=== PATIENT | male | born 1970 | race Caucasian/White ===

== ENCOUNTER 2019-03-01 09:00 | Emergency (ER) | payer MEDICAID ==
--- NOTE | 2019-03-01 09:08 | ER Report ---
History and Physical Time Seen By MD: 09:08 HPI/ROS CHIEF COMPLAINT: Right otalgia HISTORY OF PRESENT ILLNESS: Patient is a 48-year-old male here with complaints of several days of diminished hearing, fullness sensation now with pain in the right ear. Patient also reports feeling congested with postnasal drainage. Patient is afebrile, hemodynamically stable at time of evaluation denies further complaints of this time. REVIEW OF SYSTEMS: Constitutional: No fever, no chills. Eyes: No discharge. ENT: Right-sided otalgia, denies sore throat, denies drainage from the ear Cardiovascular: No chest pain, no palpitations. Respiratory: No cough, no shortness of breath. Gastrointestinal: No abdominal pain, no vomiting. Genitourinary: No hematuria. Musculoskeletal: No back pain. Skin: No rashes. Neurological: No headache. Allergies: Coded Allergies: No Known Drug Allergies (Unverified , 03/01/19) Home Meds Reported Medications Venlafaxine Hcl (EFFEXOR XR) 37.5 Mg Cap.er.24h, 37.5 MG PO QDAY 03/01/19 Constitutional Vital Sign - Last 24 Hours 03/01/19 09:11 Temp 97.5 Pulse 100 Resp 18 B/P (MAP) 129/93 Pulse Ox 96 O2 Delivery Room Air Physical Exam General Appearance: The patient is alert, has no immediate need for airway protection and no signs of toxicity. No acute distress Eyes: Pupils equal and round no pallor or injection. ENT, Mouth: Mucous membranes are moist.+ Erythema of the right tympanic membrane with bulging, ear canal non-erythematous, left tympanic membrane unremarkable Respiratory: There are no retractions, lungs are clear to auscultation. Cardiovascular: Regular rate and rhythm. Gastrointestinal: Abdomen is soft and non tender, no masses, bowel sounds normal. Neurological: No focal neurological deficit Skin: Warm and dry, no rashes. Musculoskeletal: Neck is supple non tender. Extremities are nontender, nonswollen and have full range of motion. DIFFERENTIAL DIAGNOSIS: After history and physical exam differential diagnosis was considered for otitis media, otitis externa, viral versus bacterial etiology Medical Decision Making ED Course/Re-evaluation ED Course Patient is a 48-year-old male here with complaints of right otalgia for the past several days with fullness sensation, decreased hearing. Patient's tympanic membrane on the right side is erythematous, bulging consistent with otitis media. Patient was given Toradol for analgesia and inflammation. Prescription provided for antimicrobial therapy. Recommend close PCP follow-up, return precautions provided. Decision to Disposition Date: Mar 01, 2019 Decision to Disposition Time: 09:29 Depart Departure Latest Vital Signs Vital Signs Date Time Temp Pulse Resp B/P (MAP) Pulse Ox O2 Delivery O2 Flow Rate FiO2 03/01/19 09:11 97.5 100 18 129/93 96 Room Air Impression: Primary Impression: Otitis media Condition: Improved Disposition: HOME OR SELF-CARE New Scripts Tramadol Hcl (TRAMADOL HCL) 50 Mg Tablet 50 MG PO Q6H PRN for PAIN, #6 TAB 0 Refills Prov: CHACE ONTIVEROS DO 03/01/19 Amoxicillin/Pot Clav 875-125 Mg Tab (AUGMENTIN 875-125 TABLET) 1 Each Tablet 1 TAB PO Q12H for 7 Days, #14 TAB Prov: CHACE ONTIVEROS DO 03/01/19 Patient Instructions: Otitis Media (ED) Additional Instructions: Please take Augmentin 1 tablet twice daily for 7 days for treatment of ear infection. Please continue to take ibuprofen or naproxen as needed for pain control, you may take tramadol 1 tablet every 6-8 hours as needed for breakthrough pain control. Please follow-up with her family doctor in the next 24-48 hours. Please return promptly if you develop fevers, worsening pain, headaches, visual changes CHACE ONTIVEROS DO Mar 01, 2019 09:08
[2019-03-01 09:11] VITALS: BP 129/93
[2019-03-01] MEDS ORDERED: VENL37.594 PO (09:14)
[2019-03-01] MEDS ORDERED: KETOROLAC 30 MG/ML VIAL IM ONE (09:15)
[2019-03-01] MEDS ORDERED: LIDOCAINE 2% VISC SLN 15ML UDC PO ONE (09:20)
[2019-03-01] MEDS ORDERED: AMOX-559 PO (09:32)
[2019-03-01] MEDS ORDERED: TRAM-420 PO (09:32)
== END 2019-03-01 09:38 | disposition home or self-care (01) ==
LOC: ER 09:38
DX: H66.91 Otitis media, unspecified, right ear (principal)
CPT/HCPCS: 96372; 99283; J1885